=== PATIENT | male | born 1950 | race Caucasian/White ===

== ENCOUNTER 2018-01-18 02:35 | Emergency (ER) | payer MEDICARE ==
[~2018-01-18] VITALS: Ht 167.6 cm; Wt 86.2 kg
--- NOTE | 2018-01-18 02:58 | PHYS DOC ---
Adult General Chief Complaint Chief Complaint: BACK PAIN OR INJURY HPI HPI Patient is a 67-year-old male who presents with complaints of left flank pain that radiates to the left side of the abdomen, patient states is similar to previous kidney stone. Patient denies any fevers, chills, rashes, vomiting, diarrhea. Patient denies any changes in his urine. Patient denies any trauma Review of Systems Review of Systems Constitutional: Denies fever or chills [] HENT: Denies pain Respiratory: Denies cough or shortness of breath [] Cardiovascular: Denies pain GI: As per history of present illness : Denies dysuria or hematuria [] Musculoskeletal: As per history of present illness[] Integument: Denies rash or skin lesions [] Neurologic: Denies headache, focal weakness or sensory changes [] All other systems were reviewed and found to be within normal limits, except as documented in this note. Current Medications Current Medications Current Medications Medications (Trade) Dose Ordered Sig/Amy Start Time Stop Time Status Last Admin Dose Admin Ketorolac Tromethamine (Toradol) 15 mg 1X ONCE 01/18/18 03:00 01/18/18 03:01 UNV Sodium Chloride 1,000 ml @ 1,000 mls/hr 1X ONCE 01/18/18 03:00 01/18/18 03:59 UNV Allergies Allergies Allergies Coded Allergies Type Severity Reaction Last Updated Verified No Known Drug Allergies 01/18/18 No Physical Exam Physical Exam Constitutional: Well developed, well nourished, mild distress, non-toxic appearance. [] HENT: Normocephalic, atraumatic, bilateral external ears normal, oropharynx dry , no oral exudates, nose normal. [] Eyes: EOMI, conjunctiva normal, no discharge. [] Neck: Normal range of motion, recommended midline, no stridor. [] Cardiovascular:Heart rate regular rhythm, no murmur, normal perfusion Lungs & Thorax: Bilateral breath sounds clear to auscultation tachypnea Abdomen: Bowel sounds normal, soft, no tenderness, no masses, no pulsatile masses. [] Skin: Warm, dry, no erythema, no rash. [] Back: Normal range of motion, no CVAT Extremities: No tenderness, no PT ROM intact, no edema. [] Neurologic: Alert and oriented X 3, normal motor function, ambulates with normal gait and without assistance, no focal deficits noted. [] Psychologic: Affect normal, judgement normal, mood normal. [] EKG EKG [] Radiology/Procedures Radiology/Procedures CT report shows distal 1/3 stone with left hydronephrosis[] Course & Med Decision Making Course & Med Decision Making Pertinent Labs and Imaging studies reviewed. (See chart for details) 0348 pt is well controlled. Pt states he has norco at home. Strict return precautions have been discussed with the patient who agrees to follow-up as directed. Udip only shows large blood [] Dragon Disclaimer Dragon Disclaimer This electronic medical record was generated, in whole or in part, using a voice recognition dictation system. Departure Departure: Impression: Primary Impression: Kidney stone on left side Condition: STABLE Referrals: JJ SCHUSTER (PCP) Please follow with your doctor in 2-3 days and discuss this ED visit and possible need for referral to urologist if the stone has not passed Patient Instructions: Diet for Kidney Stones, Kidney Stones Scripts Tamsulosin Hcl (FLOMAX) 0.4 Mg Cap.er.24h 1 CAP PO QHS for 7 Days, #7 CAP 11 Refills Prov: Michael SHORE MD 01/18/18 Ketorolac Tromethamine (KETOROLAC TROMETHAMINE) 10 Mg Tablet 1 TAB PO TID, #15 TAB Prov: Michael SHORE MD 01/18/18 Michael SHORE MD Jan 18, 2018 02:58
[2018-01-18] MEDS: KETOROLAC 15 MG/ML VIAL. IV ONE (03:08)
[2018-01-18] MEDS: IV NORMAL SALINE 1,000ML 1,000 ML IV ONE ×2 (03:08→04:01)
[2018-01-18 03:20] LABS: BASO % 1 % (0-3); CALCIUM 9.4 mg/dL (8.5-10.1); EOS # 0.1 x10^3/uL (0.0-0.7); EOS % 2 % (0-3); GFR 74.5; HEMOGLOBIN 14.7 g/dL (13.0-17.5); LYMPH # 1.2 x10^3/uL (1.0-4.8); LYMPH % 24 % (24-48); MEAN CORPUSCULAR HEMOGLOBIN 30 pg (25-35); MEAN CORPUSCULAR HGB CONC 35 g/dL (31-37); MEAN CORPUSCULAR VOLUME 85 fL (79-100); MONO # 0.4 x10^3/uL (0.0-1.1); MONO % 8 % (0-9); NEUT # 3.3 x10^3uL (1.8-7.7); NEUT % 66 % (31-73); PLATELET COUNT 194 x10^3/uL (140-400); POTASSIUM 3.8 mmol/L (3.5-5.1); RED BLOOD COUNT 4.92 x10^6/uL (4.30-5.70); RED CELL DISTRIBUTION WIDTH 12.9 % (11.5-14.5)
--- NOTE | 2018-01-18 03:20 | RAD ---
CT abdomen and pelvis without contrast. HISTORY: Left flank pain, history of kidney stones CT scan of the abdomen and pelvis was done without contrast. Lung bases are free of infiltrates. There is a 9 mm nodule in the medial left lung base. Correlation with an old study would be of benefit, the if there is no old study then close follow-up or PET CT could be of benefit according to Fleischner Society. A liver lesion is not identified. There is no calcified gallstone. Spleen and adrenal glands are normal. There is a right renal cyst. There is a 2 mm calculus in the lower right kidney. Right renal cyst measures 2.3 cm. There is no adenopathy or bowel obstruction. There is moderate stool in the colon. There is left hydronephrosis. There is a 5 mm ureteral calculus in the mid pelvis on the left adjacent to the iliac vessels. There are phleboliths in the pelvis. There is moderate stool in the colon. IMPRESSION: 1. Right intrarenal calculus. 2. 5 mm calculus in the distal third of the left ureter with left hydronephrosis. PQRS Compliance Statement: One or more of the following individualized dose reduction techniques were utilized for this examination: 1. Automated exposure control 2. Adjustment of the mA and/or kV according to patient size 3. Use of iterative reconstruction technique Electronically signed by: Earle Abdalla MD (01/18/2018 3:17 AM) [id number]
[2018-01-18] MEDS ORDERED: KETO10TA PO (03:52)
[2018-01-18] MEDS ORDERED: TAMS0.4C97 PO (03:52)
[2018-01-18 04:30] VITALS: BP 131/79
== END 2018-01-18 04:45 | disposition home or self-care (01) ==
LOC: ER 02:35
DX: N13.2 Hydronephrosis with renal and ureteral calculous obstruction (principal)
CPT/HCPCS: 36415; 74176; 80048; 85025; 96361; 96374; 99285; J1885; J7030

== ENCOUNTER 2019-02-21 11:09 | Emergency (ER) | payer MEDICARE ==
[~2019-02-21] VITALS: Ht 170.2 cm; Wt 85.3 kg
[~2019-02-21 11:09] MED LIST: KETO10TA PO; TAMS0.4C97 PO
[2019-02-21] MEDS ORDERED: IV NORMAL SALINE 1,000ML 1,000 ML IV ONE (11:30)
--- NOTE | 2019-02-21 11:36 | PHYS DOC ---
Past History Past Medical History: High Cholesterol, Kidney Stones Past Surgical History: No Surgical History Alcohol Use: Occasionally Drug Use: None Adult General Chief Complaint Chief Complaint: FLANK PAIN HPI HPI 68-year-old male presents with right lower quadrant abdominal pain. The patient states that the pain is in the right lower quadrant and radiates to the groin. This is typical of the pain that he has with kidney stones. His last kidney stone was one year ago on the left side. The pain started about one hour ago. He is having some urinary retention since the pain started. He denies fever or chills. He does not have any abdominal surgical history. Review of Systems Review of Systems Constitutional: Denies fever or chills [] Eyes: Denies change in visual acuity, redness, or eye pain [] HENT: Denies nasal congestion or sore throat [] Respiratory: Denies cough or shortness of breath [] Cardiovascular: No additional information not addressed in HPI [] GI: RLQ abdominal pain. Denies nausea, vomiting, bloody stools or diarrhea [] : Denies dysuria or hematuria [] Musculoskeletal: Denies back pain or joint pain [] Integument: Denies rash or skin lesions [] Neurologic: Denies headache, focal weakness or sensory changes [] Endocrine: Denies polyuria or polydipsia [] All other systems were reviewed and found to be within normal limits, except as documented in this note. Current Medications Current Medications Current Medications Medications (Trade) Dose Ordered Sig/Amy Start Time Stop Time Status Last Admin Dose Admin Ketorolac Tromethamine (Toradol 30mg Vial) 30 mg 1X ONCE 02/21/19 11:30 02/21/19 11:31 UNV Sodium Chloride 1,000 ml @ 1,000 mls/hr 1X ONCE 02/21/19 11:30 02/21/19 12:29 UNV Allergies Allergies Allergies Coded Allergies Type Severity Reaction Last Updated Verified No Known Drug Allergies 02/21/19 No Physical Exam Physical Exam Constitutional: Well developed, well nourished, no acute distress, non-toxic appearance. [] HENT: Normocephalic, atraumatic, bilateral external ears normal, oropharynx moist, no oral exudates, nose normal. [] Eyes: PERRLA, EOMI, conjunctiva normal, no discharge. [] Neck: Normal range of motion, no tenderness, supple, no stridor. [] Cardiovascular:Heart rate regular rhythm, no murmur [] Lungs & Thorax: Bilateral breath sounds clear to auscultation [] Abdomen: Bowel sounds normal, soft, mild RLQ tenderness, no masses, no pulsatile masses. [] Skin: Warm, dry, no erythema, no rash. [] Back: No tenderness, no CVA tenderness. [] Extremities: No tenderness, no cyanosis, no clubbing, ROM intact, no edema. [] Neurologic: Alert and oriented X 3, normal motor function, normal sensory function, no focal deficits noted. [] Psychologic: Affect normal, judgement normal, mood normal. [] Current Patient Data Vital Signs Vital Signs Date Time Temp Pulse Resp B/P (MAP) Pulse Ox O2 Delivery O2 Flow Rate FiO2 02/21/19 11:17 98.3 85 18 96 Room Air EKG EKG [] Radiology/Procedures Radiology/Procedures [] Impressions: EXAM: CT Abdomen and Pelvis without IV contrast CLINICAL HISTORY: Right lower quadrant pain. COMPARISON: 01/18/2018 TECHNIQUE: Helical CT of the abdomen and pelvis without intravenous contrast. Axial, coronal and sagittal reformatted images were generated. PQRS compliance statement - One or more of the following individualized dose reduction techniques were utilized for this study: 1. Automated exposure control 2. Adjustment of the mA and/or kV according to patient size 3. Use of iterative reconstruction technique FINDINGS: Lack of intravenous contrast limits evaluation of solid organs, vasculature, and lymph nodes. Lower chest: A 1 cm posterior left lower lobe lung nodule is stable. Linear opacities in left lower lobe likely scarring/atelectasis. Coronary artery calcifications are seen. Abdomen and Pelvis: No focal liver lesion. Gallbladder is normal. No biliary ductal dilatation. Pancreas is unremarkable. Spleen is normal in appearance. Adrenal glands are unremarkable. Right interpolar renal cystic lesion is seen. Mild right hydronephrosis and hydroureter with 4 mm calculus at the right ureterovesicular junction. No left renal calculus. No bladder calculi. Prostate is enlarged with dystrophic calcifications. Moderate colonic stool content is seen. Appendix is normal. No small or large bowel dilatation to suggest bowel obstruction. Small fat-containing periumbilical hernia is seen. Aortic calcifications are seen. No abdominal or pelvic ascites. No abdominal or pelvic lymphadenopathy. Bones: Osseous structures are grossly unremarkable degenerative changes of the spine are seen. IMPRESSION: 1. A 4 mm right distal ureteral calculus is seen with resultant mild hydronephrosis and hydroureter. 2. Right interpolar renal cystic lesion is seen. Electronically signed by: Micky Wolff MD (02/21/2019 12:11 PM) [id number] DICTATED AND SIGNED BY: MICKY WOLFF MD DATE: 02/21/19 1211 CC: ALEXANDER REEVES DO; JJ SCHUSTER ~ Course & Med Decision Making Course & Med Decision Making Pertinent Labs and Imaging studies reviewed. (See chart for details) Patient's labs are unremarkable. His CT scan does show a 4 mm stone with mild hydronephrosis. Given the patient 1 L normal saline and 30 mg Toradol. I will discharge him with Flomax for 2 weeks. His urinalysis is pending. His urinalysis is negative for infection. No and relaxer indicated at this time. He is stable for discharge. [] Dragon Disclaimer Dragon Disclaimer This electronic medical record was generated, in whole or in part, using a voice recognition dictation system. Departure Departure: Disposition: 01 HOME, SELF-CARE Condition: STABLE Referrals: JJ SCHUSTER (PCP) Patient Instructions: Kidney Stones, [id number] Additional Instructions: You can follow-up with urology at [facility]. Their phone number is [phone]. I would advise them that you were seen in the emergency room and to currently have a stone. Make an appointment for one week in case this stone does not pass. You can choose to cancel that appointment if her symptoms are resolved prior to. Scripts Hydrocodone Bit/Acetaminophen (NORCO 5-325 TABLET) 1 Each Tablet 1 TAB PO PRN Q6HRS for pain, #14 TAB 0 Refills Prov: ALEXANDER REEVES DO 02/21/19 Tamsulosin Hcl (FLOMAX) 0.4 Mg Cap.er.24h 1 CAP PO DAILY for kidney stone for 14 Days, #14 CAP 3 Refills Prov: ALEXANDER REEVES DO 02/21/19 ALEXANDER REEVES DO February 21, 2019 11:36
[2019-02-21 11:54] LABS: BASO % 1 % (0-3); EOS # 0.1 x10^3/uL (0.0-0.7); EOS % 2 % (0-3); HEMATOCRIT 44.9 % (39.0-53.0); HEMOGLOBIN 15.4 g/dL (13.0-17.5); LYMPH % 27 % (24-48); MEAN CORPUSCULAR HEMOGLOBIN 30 pg (25-35); MEAN CORPUSCULAR HGB CONC 34 g/dL (31-37); MEAN CORPUSCULAR VOLUME 88 fL (79-100); MONO # 0.5 x10^3/uL (0.0-1.1); MONO % 12 % (0-9); NEUT # 2.3 x10^3uL (1.8-7.7); NEUT % 58 % (31-73); PLATELET COUNT 187 x10^3/uL (140-400); RED BLOOD COUNT 5.13 x10^6/uL (4.30-5.70); RED CELL DISTRIBUTION WIDTH 13.3 % (11.5-14.5); WHITE BLOOD COUNT 3.9 x10^3/uL (4.0-11.0)
[2019-02-21] MEDS ORDERED: KETOROLAC 30 MG/ML VIAL. IV ONE (12:00)
[2019-02-21 12:14] LABS: ALBUMIN 4.3 g/dL (3.4-5.0); ALBUMIN/GLOBULIN RATIO 1.3 (1.0-1.7); CALCIUM 9.6 mg/dL (8.5-10.1); CREATININE 1.1 mg/dL (0.7-1.3); GFR 66.6; TOTAL BILIRUBIN 0.6 mg/dL (0.2-1.0); TOTAL PROTEIN 7.5 g/dL (6.4-8.2)
--- NOTE | 2019-02-21 12:14 | RAD ---
EXAM: CT Abdomen and Pelvis without IV contrast CLINICAL HISTORY: Right lower quadrant pain. COMPARISON: 01/18/2018 TECHNIQUE: Helical CT of the abdomen and pelvis without intravenous contrast. Axial, coronal and sagittal reformatted images were generated. PQRS compliance statement - One or more of the following individualized dose reduction techniques were utilized for this study: 1. Automated exposure control 2. Adjustment of the mA and/or kV according to patient size 3. Use of iterative reconstruction technique FINDINGS: Lack of intravenous contrast limits evaluation of solid organs, vasculature, and lymph nodes. Lower chest: A 1 cm posterior left lower lobe lung nodule is stable. Linear opacities in left lower lobe likely scarring/atelectasis. Coronary artery calcifications are seen. Abdomen and Pelvis: No focal liver lesion. Gallbladder is normal. No biliary ductal dilatation. Pancreas is unremarkable. Spleen is normal in appearance. Adrenal glands are unremarkable. Right interpolar renal cystic lesion is seen. Mild right hydronephrosis and hydroureter with 4 mm calculus at the right ureterovesicular junction. No left renal calculus. No bladder calculi. Prostate is enlarged with dystrophic calcifications. Moderate colonic stool content is seen. Appendix is normal. No small or large bowel dilatation to suggest bowel obstruction. Small fat-containing periumbilical hernia is seen. Aortic calcifications are seen. No abdominal or pelvic ascites. No abdominal or pelvic lymphadenopathy. Bones: Osseous structures are grossly unremarkable degenerative changes of the spine are seen. IMPRESSION: 1. A 4 mm right distal ureteral calculus is seen with resultant mild hydronephrosis and hydroureter. 2. Right interpolar renal cystic lesion is seen. Electronically signed by: Micky Wolff MD (02/21/2019 12:11 PM) [id number]
[2019-02-21] MEDS ORDERED: TAMS0.4C97 PO (12:50)
[2019-02-21 14:02] LABS: BILIRUBIN,URINE NEG (NEG); CLARITY,URINE HAZY; COLOR,URINE YELLOW; GLUCOSE,URINE NEG (NEG)
[2019-02-21 14:03] LABS: BACTERIA,URINE 0 /HPF (0-FEW); NITRITE,URINE NEG (NEG); RBC,URINE >40 /HPF (0-2); SQUAMOUS EPITHELIAL CELL,UR OCC /LPF; UROBILINOGEN,URINE 0.2 mg/dL (0.2 mg/dL)
[2019-02-21] MEDS ORDERED: HYDR-3165 PO (14:08)
[2019-02-21 14:15] VITALS: BP 141/77
== END 2019-02-21 14:15 | disposition home or self-care (01) ==
LOC: ER 11:15
DX: N13.2 Hydronephrosis with renal and ureteral calculous obstruction (principal); N28.1 Cyst of kidney, acquired; E78.00 Pure hypercholesterolemia, unspecified; Z87.442 Personal history of urinary calculi
CPT/HCPCS: 36415; 74176; 80053; 81001; 85025; 96374; 99285; J1885; J7030